=== PATIENT | male | born 1965 | race Hispanic/Latino ===

== ENCOUNTER → 2022-09-02 13:57 | Outpatient (CLI) | payer OTHER, SELFPAY ==
--- NOTE | 2022-09-02 14:17 | DI.RAD.S_ITS ---
PROCEDURE: XR LUMBAR SPINE 2-3V INDICATIONS: BACK PAIN FROM WORKING TECHNIQUE: 3 views of the lumbar spine were acquired. COMPARISON: None. FINDINGS: Bones: 5 [id number] vertebrae are present. There is normal bony alignment. No vertebral body compression fractures. No suspicious bony lesions. Mild degenerative disc disease and facet arthropathy at L4-L5. Soft tissues: Overlying bowel gas pattern is normal. No suspicious soft tissue calcifications. IMPRESSION: Mild degenerative disc disease and facet arthropathy at L4-L5. Dictated by: Kelin Lewis M.D. on 09/04/2022 at 9:07 Approved by: Kelin Lewis M.D. on 09/04/2022 at 9:10
--- NOTE | 2022-09-02 14:17 | DI.RAD.S_ITS ---
PROCEDURE: XR HAND RT MIN 3V INDICATIONS: HAND PAIN TECHNIQUE: Three views of the hand(s) acquired. COMPARISON: None. FINDINGS: Bones: No acute fractures. There is deformity of healed, impacted and mildly angulated 5th metacarpal fracture. Fifth MCP joint appears intact. There is intact fixation hardware in the distal radius. There is irregularity of the radial articular surface due to prior fracture. Corticated osseous fragment seen dorsal to the carpal bones may be remote, mildly displaced fracture fragment. There is slight ulnar positive variance. There are degenerative subcortical cystic changes seen throughout the proximal carpal row bones. Soft tissues: Tiny osseous fragment in the region of the triangular fibrocartilage distal to the ulna. There is mild atherosclerotic calcification of the radial artery. IMPRESSION: 1. Remote posttraumatic changes in the distal forearm, wrist, and 5th metacarpal. 2. Intact postsurgical change in the distal radius. 3. Degenerative change in the proximal carpal row. 4. Mild positive ulnar variance, potentially posttraumatic or degenerative. Dictated by: Maryanne Powers M.D. on 09/03/2022 at 10:09 Approved by: Maryanne Powers M.D. on 09/03/2022 at 10:14
== END ==
DX: M47.816 Spondylosis without myelopathy or radiculopathy, lumbar region (principal); M51.36 Other intervertebral disc degeneration, lumbar region; M54.9 Dorsalgia, unspecified; M79.641 Pain in right hand; Z87.81 Personal history of (healed) traumatic fracture
CPT/HCPCS: 72100; 73130

== ENCOUNTER → 2022-12-29 08:47 | Outpatient (CLI) | payer OTHER, SELFPAY ==
--- NOTE | 2022-12-29 | DI.RAD.S_ITS ---
PROCEDURE: XR HIP W PEL IF DONE LT 2V INDICATIONS: left hip pain TECHNIQUE: AP pelvis with lateral view(s) of the left hip(s). COMPARISON: None. FINDINGS: Bones: No fractures or dislocations. Pelvic ring appears intact. No suspicious bony lesions. Soft tissues: The visualized bowel gas pattern is normal. No suspicious soft tissue calcifications. IMPRESSION: No acute fracture. No osseous lesion. If symptoms and/or clinical suspicion for pathology persist, further assessment with repeat, or advanced imaging (e.g., CT, MRI, or bone scan) may be helpful for further assessment. Dictated by: Jayashree Quiros M.D. on 12/29/2022 at 10:24 Transcribed by: [email or web address] on 12/29/2022 at 10:24 Approved by: Jayashree Quiros M.D. on 12/29/2022 at 15:31
== END ==
PROVIDERS: Referring Provider Internal Medicine Cardiovascular Disease; Visit Provider Internal Medicine Cardiovascular Disease
DX: M25.552 Pain in left hip (principal)
CPT/HCPCS: 73502